=== PATIENT | female | born 1975 | race Caucasian/White ===

== ENCOUNTER 2025-02-06 11:54 | Outpatient (CLI) | payer MEDICARE, MEDICAID ==
[2025-02-06 14:10] LABS: Hematocrit 33.2 % (34.9-44.5); Hemoglobin 10.1 g/dL (12.0-15.5); Mean Corpuscular Hemoglobin 25.9 pg (27.0-33.0); Mean Corpuscular Volume 85.1 fL (81.6-98.3); Platelet Count 435 10x3/uL (150-450); Red Blood Cell (RBC) Count 3.90 10x6/uL (3.90-5.03); White Blood Cell (WBC) Count 7.07 10x3/uL (3.5-10.5)
[2025-02-06 14:16] LABS: Anion Gap 13 mmol/L (10-20); BUN (Urea Nitrogen) 5 mg/dL (7.0-18.7); Calc. Creatinine Clearance 0 mL/min (70-130); Calcium 8.8 mg/dL (7.8-10.44); Carbon Dioxide 21 mmol/L (22-29); Chloride 107 mmol/L (98-107); Glucose 100 mg/dL (70-105); Potassium 3.9 mmol/L (3.5-5.1); Sodium 137 mmol/L (136-145)
[2025-02-06 14:56] LABS: INR-International Normal Ratio 0.9; PTT 26.5 sec (22.0-33.0); Prothrombin Time 10.3 sec (9.5-12.1)
== END 2025-02-06 11:55 | disposition home or self-care (01) ==
LOC: CSHLAB 11:54
PROVIDERS: ATTEND Orthopaedic Surgery
DX: Z01.818 Encounter for other preprocedural examination (principal); M54.16 Radiculopathy, lumbar region
CPT/HCPCS: 80048; 83036; 85027; 85610; 85730; 86850; 86900; 86901; 93005; 93010

== ENCOUNTER 2025-02-06 12:00 | Inpatient (IN) | payer MEDICARE, MEDICAID ==
[2025-02-15] MEDS ORDERED: Bupivacaine/Epinephrine 0.25% 30 ML VIAL ONE (06:39)
[2025-02-15] MEDS ORDERED: Thrombin 5000 UNITS/5 ML VIAL FS SCH (06:45)
[2025-02-15] MEDS ORDERED: Phenylephrine 40 MG/NS 250 ML 250 ML ONE (06:52)
[2025-02-15] MEDS ORDERED: Sevoflurane 250 ML INH ANEST BOTTLE ONE (06:53)
[2025-02-15] MEDS ORDERED: KETAMINE 100 MG/ML (5ML VIAL) ONE (06:53)
[2025-02-15] MEDS ORDERED: Famotidine/PF 20 mg/2ml Vial ONE (06:54)
[2025-02-15] MEDS ORDERED: Albuterol HFA (OR) 200 PUFF INH ONE (06:55)
[2025-02-15] MEDS ORDERED: CEFAZOLIN 2 GM VIAL ONE (07:06)
[2025-02-15] MEDS ORDERED: PROPOFOL 40 ML ONE (07:08)
[2025-02-15] MEDS ORDERED: Rocuronium Bromide 10 MG/ML (10ML VIAL) ONE (07:08)
[2025-02-15] MEDS ORDERED: Glycopyrrolate 0.2 MG/ML 5 ML SYRINGE ONE (07:09)
[2025-02-15] MEDS ORDERED: diphenhydrAMINE 50 MG/ML VIAL ONE (07:09)
[2025-02-15] MEDS ORDERED: SUCCINYLCHOLINE/SOD CL,ISO/PF 200 MG/10 ML SYRINGE FS ONE (07:09)
[2025-02-15] MEDS ORDERED: Ondansetron PF 4 MG/2 ML Vial ONE (07:09)
[2025-02-15 08:24] LABS: Glucose, Urine (Dipstick) Normal (Negative); Leukocyte Negative (Negative); Protein, Urine (Dipstick) Negative (Neg-Trace); Specific Gravity, Urine 1.010 (1.005-1.030)
[2025-02-15 08:42] LABS: RBC/HPF None Seen HPF (0-3); WBC/HPF 0-3 HPF (0-3)
[2025-02-15 08:43] LABS: Bacteria/HPF 1+ HPF (None Seen)
[2025-02-15] MEDS ORDERED: CEFAZOLIN 1 GM VIAL ONE (12:34)
[2025-02-15] MEDS ORDERED: HYDROcodone/Acetaminophen 10/325 mg Tablet PO PRN ×2 (12:40→15:19)
[2025-02-15] MEDS ORDERED: HYDROcodone/Acetaminophen 5/325 mg Tablet PO PRN (12:40)
[2025-02-15] MEDS ORDERED: Acetaminophen 325 MG TAB PO PRN (12:40)
[2025-02-15] MEDS ORDERED: Acetaminophen/Codeine 30-300mg Tablet PO PRN ×2 (12:40→15:19)
[2025-02-15] MEDS ORDERED: Dicyclomine 20 MG TAB PO PRN (12:41)
[2025-02-15] MEDS ORDERED: Albuterol 2.5 MG (3 mL) NEB NEB PRN (12:41)
[2025-02-15] MEDS ORDERED: Communication Order-Pharmacy FS SCH (12:45)
[2025-02-15 15:21] VITALS: BMI 38.2
[2025-02-15] MEDS: Gabapentin 300 MG CAP PO PRN (15:23)
[2025-02-15] MEDS: metFORMIN 500 MG TAB PO SCH (17:39)
[2025-02-15] MEDS: Mometasone 100 MCG/PUFF (1 INHALER) INH SCH (20:00)
[2025-02-15] MEDS ORDERED: AZELASTINE HCL EA EYE SCH (21:00)
[2025-02-15] MEDS ORDERED: Non-Formulary Medication 1 EACH (Fluticasone/Umeclidin/Vilanter [Trelegy Ellipta 100-62.5- INH SCH (21:00)
[2025-02-15] MEDS: Ketotifen 0.035% Ophth Soln 5 ml Bottle EA EYE SCH (21:15)
[2025-02-15] MEDS: Aspirin 81 mg Enteric Coated Tablet PO SCH (21:15)
[2025-02-15] MEDS: Lithium Carbonate 300 MG ER.TAB PO SCH (21:16)
[2025-02-15] MEDS: Losartan 25 MG TAB PO SCH (21:16)
[2025-02-15] MEDS: Methocarbamol 500 MG TAB PO PRN (21:54)
[2025-02-15] MEDS ORDERED: Glucagon 1 MG/ML KIT IM PRN (23:47)
[2025-02-15] MEDS ORDERED: Dextrose 50% Abboject 50 ML SYRINGE SLOW IVP PRN (23:47)
[2025-02-16] MEDS: Pantoprazole 40 MG DR.TAB PO SCH (08:30)
[2025-02-16] MEDS: Citalopram 20 MG TAB PO SCH (08:30)
[2025-02-16] MEDS: valACYclovir 500 MG TAB PO SCH (08:30)
[2025-02-16] MEDS ORDERED: Non-Formulary Medication 1 EACH (Fluticasone/Umeclidin/Vilanter [Trelegy Ellipta 100-62.5- INH SCH (09:00)
[2025-02-16 11:37] LABS: Anion Gap 11 mmol/L (10-20); BUN (Urea Nitrogen) 14 mg/dL (7.0-18.7); Calc. Creatinine Clearance 140 mL/min (70-130); Calcium 8.4 mg/dL (7.8-10.44); Carbon Dioxide 23 mmol/L (22-29); Chloride 107 mmol/L (98-107); Glucose 135 mg/dL (70-105); Potassium 3.6 mmol/L (3.5-5.1); Sodium 137 mmol/L (136-145)
[2025-02-16] MEDS: TETANUS, DIPHTHERIA TOX,ADULT (TDVAX) 0.5 ML VIAL IM ONE (20:25)
[2025-02-17 04:50] LABS: #Basophils 0.06 10x3/uL (0.0-0.2); #Eosinophils 0.10 10x3/uL (0.0-0.5); #Monocytes 0.82 10x3/uL (0.0-1.1); #Neutrophils 7.07 10x3/uL (1.5-8.4); %Basophils 0.6 % (0.0-2.0); %Eosinophils 1.0 % (0.0-6.0); %Lymphocytes 18.2 % (18.0-47.0); %Monocytes 8.3 % (0.0-10.0); %Neutrophils 71.3 % (40.0-75.0); Hematocrit 25.2 % (34.9-44.5); Hemoglobin 7.7 g/dL (12.0-15.5); Mean Corpuscular Hemoglobin 26.5 pg (27.0-33.0); Mean Corpuscular Volume 86.6 fL (81.6-98.3); Platelet Count 322 10x3/uL (150-450); Red Blood Cell (RBC) Count 2.91 10x6/uL (3.90-5.03); White Blood Cell (WBC) Count 9.91 10x3/uL (3.5-10.5)
[2025-02-17 13:27] LABS: Iron 14 ug/dL (50-170); Iron 15 ug/dL (50-170); Iron Binding Capacity, Total 289 mcg/dL (265-497); Iron Binding Capacity, Total 295 mcg/dL (265-497)
[2025-02-18 05:03] LABS: #Basophils 0.06 10x3/uL (0.0-0.2); #Eosinophils 0.28 10x3/uL (0.0-0.5); #Monocytes 0.67 10x3/uL (0.0-1.1); #Neutrophils 6.43 10x3/uL (1.5-8.4); %Basophils 0.6 % (0.0-2.0); %Eosinophils 2.9 % (0.0-6.0); %Lymphocytes 22.5 % (18.0-47.0); %Monocytes 6.9 % (0.0-10.0); %Neutrophils 66.6 % (40.0-75.0); Hematocrit 25.3 % (34.9-44.5); Hemoglobin 7.8 g/dL (12.0-15.5); Mean Corpuscular Hemoglobin 26.6 pg (27.0-33.0); Mean Corpuscular Volume 86.3 fL (81.6-98.3); Platelet Count 323 10x3/uL (150-450); Red Blood Cell (RBC) Count 2.93 10x6/uL (3.90-5.03); White Blood Cell (WBC) Count 9.67 10x3/uL (3.5-10.5)
[2025-02-18 11:29] VITALS: BP 104/63; TEMP 98
== END 2025-02-18 13:51 | disposition home or self-care (01) | DRG 427 ==
LOC: OBSVTOIN 02-15 05:59 → INTOOBSV 02-15 05:59 → CSHTELE 02-15 05:59
PROVIDERS: ADMIT Orthopaedic Surgery; ATTEND Orthopaedic Surgery
PROC: 0SG30AJ Fusion of Lumbosacral Joint with Interbody Fusion Device, Posterior Approach, Anterior Column, Open Approach (ICD-10-PCS; principal; 2025-02-15)
PROC: 0SG10AJ Fusion of 2 or more Lumbar Vertebral Joints with Interbody Fusion Device, Posterior Approach, Anterior Column, Open Approach (ICD-10-PCS; 2025-02-15)
PROC: 0SG1071 Fusion of 2 or more Lumbar Vertebral Joints with Autologous Tissue Substitute, Posterior Approach, Posterior Column, Open Approach (ICD-10-PCS; 2025-02-15)
PROC: 0SG3071 Fusion of Lumbosacral Joint with Autologous Tissue Substitute, Posterior Approach, Posterior Column, Open Approach (ICD-10-PCS; 2025-02-15)
PROC: 01NB0ZZ Release Lumbar Nerve, Open Approach (ICD-10-PCS; 2025-02-15)
PROC: 0SB20ZZ Excision of Lumbar Vertebral Disc, Open Approach (ICD-10-PCS; 2025-02-15)
PROC: 0SB40ZZ Excision of Lumbosacral Disc, Open Approach (ICD-10-PCS; 2025-02-15)
PROC: 0SP004Z Removal of Internal Fixation Device from Lumbar Vertebral Joint, Open Approach (ICD-10-PCS; 2025-02-15)
PROC: 3E03329 Introduction of Other Anti-infective into Peripheral Vein, Percutaneous Approach (ICD-10-PCS; 2025-02-15)
PROC: 4A11X4G Monitoring of Peripheral Nervous Electrical Activity, Intraoperative, External Approach (ICD-10-PCS; 2025-02-15)
PROC: 0T9B70Z Drainage of Bladder with Drainage Device, Via Natural or Artificial Opening (ICD-10-PCS; 2025-02-15)
PROC: 3E033XZ Introduction of Vasopressor into Peripheral Vein, Percutaneous Approach (ICD-10-PCS; 2025-02-15)
PROC: 3E0234Z Introduction of Serum, Toxoid and Vaccine into Muscle, Percutaneous Approach (ICD-10-PCS; 2025-02-15)
DX: M48.061 Spinal stenosis, lumbar region without neurogenic claudication (principal); D62 Acute posthemorrhagic anemia; M41.56 Other secondary scoliosis, lumbar region; M54.16 Radiculopathy, lumbar region; M43.16 Spondylolisthesis, lumbar region; F41.9 Anxiety disorder, unspecified; E66.9 Obesity, unspecified; M48.07 Spinal stenosis, lumbosacral region; I10 Essential (primary) hypertension; Z79.899 Other long term (current) drug therapy; Z79.891 Long term (current) use of opiate analgesic; Z88.8 Allergy status to other drugs, medicaments and biological substances; Z88.5 Allergy status to narcotic agent; Z98.890 Other specified postprocedural states; Z98.1 Arthrodesis status; Z68.38 Body mass index [BMI] 38.0-38.9, adult; J44.9 Chronic obstructive pulmonary disease, unspecified; M43.17 Spondylolisthesis, lumbosacral region; F31.9 Bipolar disorder, unspecified; E11.69 Type 2 diabetes mellitus with other specified complication; K21.9 Gastro-esophageal reflux disease without esophagitis; Z23 Encounter for immunization; Z88.6 Allergy status to analgesic agent; E78.5 Hyperlipidemia, unspecified
CPT/HCPCS: 36415; 36416; 72100; 80048; 81001; 82728; 83540; 83550; 85025; 86850; 86900; 86901; 94664; 94760; C1713; C1889; J0690; J1100; J1200; J1308; J2250; J2270; J2405; J2704; J3010; J7620; J7626

== ENCOUNTER 2025-03-25 11:28 | Outpatient (CLI) | payer MEDICARE, MEDICAID | END 2025-03-25 11:29 | disposition home or self-care (01) | LOC: CSHRAD 11:28 | PROVIDERS: ATTEND Orthopaedic Surgery | DX: M54.50 Low back pain, unspecified (principal); Z98.890 Other specified postprocedural states; Z98.1 Arthrodesis status | CPT/HCPCS: 72100 ==

== ENCOUNTER 2025-05-21 09:27 | Outpatient (CLI) | payer MEDICARE, MEDICAID | END 2025-05-21 09:28 | disposition home or self-care (01) | LOC: CSHRAD 09:27 | PROVIDERS: ATTEND Orthopaedic Surgery | DX: M54.50 Low back pain, unspecified (principal) | CPT/HCPCS: 72100 ==